=== PATIENT | female | born 1995 | race African-American/Black ===

== ENCOUNTER 2018-12-18 13:43 | Emergency (ER) | payer OTHER ==
[2018-12-18 13:49] VITALS: TEMP 98.4
--- NOTE | 2018-12-18 14:24 | ED ---
General Adult HPI - General Chief complaint: Chest Pain Stated complaint: Chest pain Time Seen by Provider: 12/18/18 14:00 Source: patient, RN notes reviewed Mode of arrival: ambulatory Limitations: no limitations - History of Present Illness Initial comments: This a 23-year-old female presents emergency Department chief complaint of chest discomfort. Patient states that she's been having on and off symptoms last couple days so she when she was at work. She has a sudden onset of pain is worse with movement or chest. Patient denies any current symptoms no shortness breath no headache or dizziness. Patient has occasional smoker. No family history of heart disease. Patient also states that she has some urinary symptoms and concern for . Patient states that she took a test a few weeks ago which was negative. Patient denies any diarrhea constipation - Related Data Previous Rx's Medication Instructions Recorded Ibuprofen [Motrin] 600 mg PO Q8HR PRN #30 tab 12/18/18 Allergies Allergy/AdvReac Type Severity Reaction Status Date / Time No Known Allergies Allergy Verified 07/05/15 20:16 Review of Systems ROS Statement: Those systems with pertinent positive or pertinent negative responses have been documented in the HPI. ROS Other: All systems not noted in ROS Statement are negative. Past Medical History Past Medical History: No Reported History History of Any Multi-Drug Resistant Organisms: None Reported Past Surgical History: Adenoidectomy, Tonsillectomy Past Psychological History: No Psychological Hx Reported Smoking Status: Former smoker Past Alcohol Use History: None Reported Past Drug Use History: None Reported General Exam Limitations: no limitations General appearance: alert, in no apparent distress Head exam: Present: atraumatic, normocephalic, normal inspection Respiratory exam: Present: normal lung sounds bilaterally, chest wall tenderne ss. Absent: respiratory distress, wheezes, rales, rhonchi, stridor Cardiovascular Exam: Present: regular rate, normal rhythm, normal heart sounds. Absent: systolic murmur, diastolic murmur, rubs, gallop, clicks GI/Abdominal exam: Present: soft, normal bowel sounds. Absent: distended, tenderness, guarding, rebound, rigid Back exam: Absent: CVA tenderness (R), CVA tenderness (L) Neurological exam: Present: alert Skin exam: Present: warm, dry, intact, normal color. Absent: rash Course Vital Signs 12/18/18 13:46 Temperature 98.4 F Pulse Rate 85 Respiratory 18 Rate Blood Pressure 121/87 O2 Sat by Pulse 98 Oximetry EKG Findings - EKG Comments: EKG Findings:: EKG performed at 14:17 normal sinus rhythm rate of 83 NC 194 QRS 78 QT status QTC 378/444 Medical Decision Making - Medical Decision Making 31-year-old female presented for intermittent chest discomfort. Patient is asymptomatic though she does have some current chest tenderness with palpation. Patient symptoms related to atypical chest pain, costochondritis. Patient was concerned about which is negative. Patient we discharged return parameters were discussed. - Lab Data Lab Results 12/18/18 12/18/18 Range/Units Unknown Unknown Urine Color Yellow Urine Appearance Cloudy H (Clear) Urine pH 7.0 (5.0-8.0) Ur Specific [place] 1.020 (1.001-1.035) Urine Protein Negative (Negative) Urine Glucose (UA) Negative (Negative) Urine Ketones Negative (Negative) Urine Blood Negative (Negative) Urine Nitrite Negative (Negative) Urine Bilirubin Negative (Negative) Urine Urobilinogen <2.0 (<2.0) mg/dL Ur Leukocyte Esterase Large H (Negative) Urine RBC 1 (0-5) /hpf Urine WBC 1 (0-5) /hpf Ur Squamous Epith Cells 7 H (0-4) /hpf Urine Mucus Rare H (None) /hpf Urine HCG, Qual Not Detected (Not Detectd) Disposition Clinical Impression: Atypical chest pain, Costochondritis Disposition: HOME SELF-CARE Condition: Stable Instructions (If sedation given, give patient instructions): Costochondritis (ED) Additional Instructions: Please return to the Emergency Department if symptoms worsen or any other concerns. Prescriptions: Ibuprofen [Motrin] 600 mg PO Q8HR PRN #30 tab PRN Reason: Pain Is patient prescribed a controlled substance at d/c from ED?: No Referrals: None,Stated [Primary Care Provider] - 1-2 days Time of Disposition: 14:59
[2018-12-18 14:33] LABS: Appearance,Urine Cloudy (Clear); Bilirubin,Urine Negative (Negative); Blood,Urine Negative (Negative); Color,Urine Yellow; Glucose,Urine (UA) Negative (Negative); Ketones,Urine Negative (Negative); Leukocyte Esterase,Urine Large (Negative); Mucus,Urine Rare /hpf; Nitrite,Urine Negative (Negative); Protein,Urine Negative (Negative); RBC,Urine 1 /hpf (0-5); Squamous Epithelial Cell,Urine 7 /hpf (0-4); Urobilinogen,Urine <2.0 mg/dL (<2.0); WBC,Urine 1 /hpf (0-5)
--- NOTE | 2018-12-18 14:45 | XR ---
EXAMINATION TYPE: XR chest 2V DATE OF EXAM: 12/18/2018 COMPARISON: NONE HISTORY: Chest pain TECHNIQUE: Frontal and lateral views of the chest are obtained. FINDINGS: Heart and mediastinum are normal. Lungs are clear. Diaphragm is normal. Bony thorax appear s normal. IMPRESSION: Normal chest
[2018-12-18 15:29] VITALS: BP 119/81; PULSE 80; RESP 16
== END 2018-12-18 15:29 | disposition home or self-care (01) ==
LOC: EC 13:43
DX: M94.0 Chondrocostal junction syndrome [Tietze] (principal); Z32.02 Encounter for pregnancy test, result negative; Z87.891 Personal history of nicotine dependence
CPT/HCPCS: 71046; 81001; 81025; 93005; 99285

== ENCOUNTER → 2021-07-01 | Outpatient (CLI) | payer OTHER ==
--- NOTE | 2021-07-02 09:38 | US ---
EXAMINATION TYPE: US OB anatomy transabd DATE OF EXAM: 07/02/2021 COMPARISON: NONE HISTORY: 26-year-old female Z36.3 MALFORMATION OF FETUS. Anatomy scan. . TECHNIQUE: Transabdominal (TA) FINDINGS: EXAM MEASUREMENTS: GESTATIONAL AGE / DATING Physician Established: (26 weeks/3 days) EDC: 10/04/2021 Dates by LMP: (26 weeks/2 days) EDC: 10/05/2021 Dates by First Scan: This is first scan. Dates by Current Scan for: (26 weeks/5 days) EDC: 10/02/2021 SURVEY IUP: Single PLACENTA: Anterior. Measures 6 cm AP, somewhat bulbous configuration. No focal lesion is identifie d. PREVIA: No previa KARL: 12.95 cm Normal CERVICAL LENGTH (transabdominal: norm > 3.0cm): 3.5 cm BIOMETRY PRESENTATION: Breech BPD: 6.51 cm 26 weeks / 2 days HC: 24.63 cm 26 weeks / 5 days AC: 23.19 cm 27 weeks / 4 days FL: 5.14 cm 27 weeks / 3 days ESTIMATED WEIGHT IN GRAMS: 1063 grams ESTIMATED WEIGHT IN LBS/OZ: 2 lbs. 5 oz. WEIGHT PERCENTAGE BASED ON ESTABLISHED DATE: 76.9 % HC/AC: 1.06 Normal FL/AC: 22.15 Normal HEART RATE: 141 bpm RHYTHM: Normal ANATOMY SEEN (within normal limits): Cisterna Magna (< 1.1 cm) 0.66 cm Nuchal Fold (< 0.6 cm) 0.52 cm Cerebellum (varies with age) 2.95 cm Midline Falx Four Chamber Heart Stomach Situs Diaphragm Bladder Three Vessel Cord Longitudinal Spine Transverse Spine Arms (bilateral) Legs (bilateral) ANATOMY NOT SEEN: Nose/lips Choroid plexus and Cavus Septi Pellucidi images limited Kidney images limited Cord Insert, not well-defined on the provided image Outflow tracts: LVOT/RVOT not well seen Lateral Vent (< 1 cm), 1.63 cm, suboptimal due to position S spine longitudinal imaging suboptimal MATERNAL WALL MEASUREMENT: 2.95 cm from skin to anterior uterine wall (if exam limited due to body h abitus). Female gender documented. IMPRESSION: 1. Single live intrauterine with established gestational age of 26 weeks 3 days. Current ul trasound biometry is concordant (26 weeks 5 days) placing the child at the 77th percentile for weight . 2. Number structures of the survey were not adequately visualized in part due to age and position. Consider rescan in one to 2 weeks. 3. Somewhat bulbous configuration to the placenta probably normal variation. No focal lesion is ident ified. This can also be reassessed on the follow-up exam. 4. Somewhat prominently distended bladder. Attention on follow-up. Also attention to the kidney s on the follow-up to exclude pelviectasis.
== END | disposition home or self-care (01) ==
LOC: RADUSWWP 16:22
PROVIDERS: ATTEND Obstetrics & Gynecology
DX: Z36.3 Encounter for antenatal screening for malformations (principal); Z3A.26 26 weeks gestation of pregnancy
CPT/HCPCS: 76811

== ENCOUNTER 2022-12-30 20:49 | Emergency (ER) | payer OTHER ==
--- NOTE | 2022-12-30 20:51 | ED ---
General Adult HPI - General Stated complaint: Gum Pain, Dizziness, 9 weeks preg Time Seen by Provider: 12/30/22 20:51 Source: RN notes reviewed - History of Present Illness Initial comments: 27-year-old -[place] female who reports she is approximately 9 weeks presents the emergency department with a chief complaint of dental pain. She reports she believes that she has a dental abscess on her right upper area of her mouth. It is tender. She reports that it is causing her to feel dizzy. She is complaining of pelvic cramping. She is not established with an CONTROL SYSTEM MANAGER at this time. She denies any vaginal bleeding, vaginal cramping, low back pain, dysuria, hematuria. Last menstrual periods date 10/28/22 Denies fevers. - Related Data Previous Rx's Medication Instructions Recorded Ibuprofen [Motrin] 600 mg PO Q8HR PRN #30 tab 12/18/18 Amoxic-Pot Clav 875-125Mg 1 tab PO Q12HR #20 tab 12/31/22 [Augmentin 875-125] Allergies Allergy/AdvReac Type Severity Reaction Status Date / Time No Known Allergies Allergy Verified 12/30/22 21:01 Review of Systems ROS Statement: Those systems with pertinent positive or pertinent negative responses have been documented in the HPI. ROS Other: All systems not noted in ROS Statement are negative. Past Medical History Past Medical History: No Reported History History of Any Multi-Drug Resistant Organisms: None Reported Past Surgical History: Adenoidectomy, Tonsillectomy Past Psychological History: No Psychological Hx Reported Past Alcohol Use History: None Reported Past Drug Use History: None Reported General Exam - General Exam Comments Initial Comments: Visual Physical Exam Vital signs reviewed General: Well-appearing, nontoxic, no acute distress. Head: Normocephalic, atraumatic Eyes: PERRLA, EOMI ENT: Airway patent Chest: Nonlabored breathing Skin: No visual rash, normal skin tone Neuro: Alert and oriented 3 Musculoskeletal: No gross abnormalities I performed the quick note portion of this exam, verbal signature Latoya Araya PA-C General: Alert, in no acute distress Head: atraumatic normocephalic. Eyes PERRL, EOMI intact, mucous membranes moist, small dental abscess to right upper gingiva Respiratory: Lungs clear to auscultation bilaterally Cardiovascular: Heart rate regular rate and rhythm Abdominal: Soft without guarding or rebound Extremities: Normal inspection with full range of motion and normal capillary refill Neuroogic: alert and oriented 3, CN II-XII intact, able to ambulate with steady gait Skin: warm dry and intact with normal color Course Vital Signs 12/30/22 12/31/22 20:59 01:30 Temperature 98.3 F 98.3 F Pulse Rate 88 76 Respiratory 18 17 Rate Blood Pressure 112/71 106/48 O2 Sat by Pulse 100 98 Oximetry - Reevaluation(s) Reevaluation #1: 12/31/22 00:39 For history and physical exam performed after patient walked to ER bed 5. Procedures - Incision & Drainage Consent Obtained: verbal consent Indication: Dental abscess Site: neck Scalpel Used: #11 Needle Aspiration Performed?: Yes Patient Tolerated Procedure: well, no complications Medical Decision Making - Medical Decision Making Was pt. sent in by a medical professional or institution (, PA, MANAGER MACHINE, urgent care, hospital, or fdc...) When possible be specific @ -[No] Did you speak to anyone other than the patient for history (EMS, parent, family, police, friend...)? What history was obtained from this source @ -[No] Did you review nursing and triage notes (agree or disagree)? Why? @ -[I reviewed and agree with nursing and triage notes] Were old charts reviewed (outside hosp., previous admission, EMS record, old EKG, old radiological studies, urgent care reports/EKG's, fdc records)? Report findings @ -[No old charts were reviewed] Differential Diagnosis (chest pain, altered mental status, abdominal pain women, abdominal pain men, vaginal bleeding, weakness, fever, dyspnea, syncope, headache, dizziness, GI bleed, back pain, seizure, CVA, palpatations, mental health, musculoskeletal)? @ -[not applicable] EKG interpreted by me (3pts min.). @ -[As above] X-rays interpreted by me (1pt min.). @ -[None done] CT interpreted by me (1pt min.). @ -[None done] U/S interpreted by me (1pt. min.). @ -Pelvic ultrasound reveals single IUP. heart tones 163 bpm What testing was considered but not performed or refused? (CT, X-rays, U/S, labs)? Why? @ -[None] What meds were considered but not given or refused? Why? @ -[None] Did you discuss the management of the patient with other professionals (professionals i.e. , PA, MANAGER MACHINE, lab, RT, psych nurse, community mental health social worker, manager of marketing, teacher, precinct commanding officer, manager of case)? Give summary @ -[No] Was smoking cessation discussed for >3mins.? @ -[No] Was critical care preformed (if so, how long)? @ -[No] Were there social determinants of health that impacted care today? How? (Homelessness, low income, unemployed, alcoholism, drug addiction, transportation, low edu. Level, literacy, decrease access to med. care, prison, rehab)? @ -[No] Was there de-escalation of care discussed even if they declined (Discuss DNR or withdrawal of care, Hospice)? DNR status @ -[No] What co-morbidities impacted this encounter? (DM, HTN, Smoking, COPD, CAD, Cancer, CVA, ARF, Chemo, Hep., AIDS, mental health diagnosis, sleep apnea, morb id obesity)? @ -[None] Was patient admitted / discharged? Hospital course, mention meds given and route, prescriptions, significant lab abnormalities, going to OR and other pertinent info. @ -Discharged. This is a pleasant 27-year-old -[place] female presents to the emergency department with dental abscess. Patient had a thorough history and physical exam performed. There is an abscess in the right upper gingiva. Attempted I&D procedure the dental abscess with minimal amount of discharge obtained. Patient tolerated well. No, palpitations. She was provided Augmentin. Return precautions were discussed. Patient discharged in stable condition. Case discussed with LUCI Head who agrees with plan or care. Undiagnosed new problem with uncertain prognosis? @ -[No] Drug Therapy requiring intensive monitoring for toxicity (Heparin, Nitro, Insulin, Cardizem)? @ -[No] Were any procedures done? @ -[No] Diagnosis/symptom? @ -Dental Abscess Acute, or Chronic, or Acute on Chronic? @ Acute Uncomplicated (without systemic symptoms) or Complicated (systemic symptoms)? @ -Uncomplicated Side effects of treatment? @ -[No] Exacerbation, Progression, or Severe Exacerbation? @ -[No] Poses a threat to life or bodily function? How? (Chest pain, [place], [place], pneumonia, PE, COPD, DKA, ARF, appy, cholecystitis, CVA, Diverticulitis, Homicidal, Suicidal, threat to staff... and all critical care pts) @ -Low likelihood - Lab Data Result diagrams: 12/30/22 22:12 12/30/22 22:12 Lab Results 12/30/22 12/30/22 12/30/22 Range/Units 22:12 22:12 22:12 WBC 6.3 (3.8-10.6) k/uL RBC 4.33 (3.80-5.40) m/uL Hgb 11.3 L (11.4-16.0) gm/dL Hct 34.6 (34.0-46.0) % MCV 79.9 L (80.0-100.0) fL MCH 26.1 (25.0-35.0) pg MCHC 32.7 (31.0-37.0) g/dL RDW 16.4 H (11.5-15.5) % Plt Count 217 (150-450) k/uL MPV 7.8 Neutrophils % 57 % Lymphocytes % 33 % Monocytes % 5 % Eosinophils % 3 % Basophils % 0 % Neutrophils # 3.6 (1.3-7.7) k/uL Lymphocytes # 2.0 (1.0-4.8) k/uL Monocytes # 0.3 (0-1.0) k/uL Eosinophils # 0.2 (0-0.7) k/uL Basophils # 0.0 (0-0.2) k/uL Anisocytosis Slight Microcytosis Slight Sodium 136 L (137-145) mmol/L Potassium 3.9 (3.5-5.1) mmol/L Chloride 104 (98-107) mmol/L Carbon Dioxide 23 (22-30) mmol/L Anion Gap 9 mmol/L BUN 11 (7-17) mg/dL Creatinine 0.78 (0.52-1.04) mg/dL Est GFR (CKD-EPI)AfAm >90 (>60 ml/min/1.73 sqM) Est GFR (CKD-EPI)NonAf >90 (>60 ml/min/1.73 sqM) Glucose 78 (74-99) mg/dL Calcium 9.5 (8.4-10.2) mg/dL Total Bilirubin 0.3 (0.2-1.3) mg/dL AST 20 (14-36) U/L ALT 15 (4-34) U/L Alkaline Phosphatase 54 (38-126) U/L Total Protein 7.5 (6.3-8.2) g/dL Albumin 4.3 (3.5-5.0) g/dL HCG, Quant 048688.0 mIU/mL Urine Color Urine Appearance (Clear) Urine pH (5.0-8.0) Ur Specific [place] (1.001-1.035) Urine Protein (Negative) Urine Glucose (UA) (Negative) Urine Ketones (Negative) Urine Blood (Negative) Urine Nitrite (Negative) Urine Bilirubin (Negative) Urine Urobilinogen (<2.0) mg/dL Ur Leukocyte Esterase (Negative) Urine RBC (0-5) /hpf Urine WBC (0-5) /hpf Ur Squamous Epith Cells (0-4) /hpf Urine Bacteria (None) /hpf Hyaline Casts (0-2) /lpf Urine Mucus (None) /hpf Blood Type A Positive Blood Type Recheck No Previous Record Bld Type Recheck Status CABO Indicated 12/30/22 Range/Units 22:40 WBC (3.8-10.6) k/uL RBC (3.80-5.40) m/uL Hgb (11.4-16.0) gm/dL Hct (34.0-46.0) % MCV (80.0-100.0) fL MCH (25.0-35.0) pg MCHC (31.0-37.0) g/dL RDW (11.5-15.5) % Plt Count (150-450) k/uL MPV Neutrophils % % Lymphocytes % % Monocytes % % Eosinophils % % Basophils % % Neutrophils # (1.3-7.7) k/uL Lymphocytes # (1.0-4.8) k/uL Monocytes # (0-1.0) k/uL Eosinophils # (0-0.7) k/uL Basophils # (0-0.2) k/uL Anisocytosis Microcytosis Sodium (137-145) mmol/L Potassium (3.5-5.1) mmol/L Chloride (98-107) mmol/L Carbon Dioxide (22-30) mmol/L Anion Gap mmol/L BUN (7-17) mg/dL Creatinine (0.52-1.04) mg/dL Est GFR (CKD-EPI)AfAm (>60 ml/min/1.73 sqM) Est GFR (CKD-EPI)NonAf (>60 ml/min/1.73 sqM) Glucose (74-99) mg/dL Calcium (8.4-10.2) mg/dL Total Bilirubin (0.2-1.3) mg/dL AST (14-36) U/L ALT (4-34) U/L Alkaline Phosphatase (38-126) U/L Total Protein (6.3-8.2) g/dL Albumin (3.5-5.0) g/dL HCG, Quant mIU/mL Urine Color Yellow Urine Appearance Cloudy H (Clear) Urine pH 6.0 (5.0-8.0) Ur Specific [place] 1.031 (1.001-1.035) Urine Protein Trace H (Negative) Urine Glucose (UA) Negative (Negative) Urine Ketones Negative (Negative) Urine Blood Negative (Negative) Urine Nitrite Negative (Negative) Urine Bilirubin Negative (Negative) Urine Urobilinogen <2.0 (<2.0) mg/dL Ur Leukocyte Esterase Small H (Negative) Urine RBC 2 (0-5) /hpf Urine WBC 3 (0-5) /hpf Ur Squamous Epith Cells 12 H (0-4) /hpf Urine Bacteria Moderate H (None) /hpf Hyaline Casts 6 H (0-2) /lpf Urine Mucus Few H (None) /hpf Blood Type Blood Type Recheck Bld Type Recheck Status Disposition Clinical Impression: Dental abscess Disposition: HOME SELF-CARE Condition: Stable Instructions (If sedation given, give patient instructions): Dental Abscess (ED) Additional Instructions: Please take antibiotics as prescribed Prescriptions: Amoxic-Pot Clav 875-125Mg [Augmentin 875-125] 1 tab PO Q12HR #20 tab Is patient prescribed a controlled substance at d/c from ED?: No Referrals: None,Stated [Primary Care Provider] - 1-2 days Carrol Coyle DO [Doctor of Osteopathic Medicine] - 1-2 days Paola Penn DO [Doctor of Osteopathic Medicine] - 1-2 days Kassandra Norton MD [STAFF PHYSICIAN] - 1-2 days Time of Disposition: 00:40
[2022-12-30 21:01] VITALS: TEMP 98.3
[2022-12-30 22:23] LABS: Anisocytosis Slight; Basophils % (A) 0 %; Eosinophils # (A) 0.2 k/uL (0-0.7); Eosinophils % (A) 3 %; HCT 34.6 % (34.0-46.0); HGB 11.3 gm/dL (11.4-16.0); Lymphocytes % (A) 33 %; MCH 26.1 pg (25.0-35.0); MCHC 32.7 g/dL (31.0-37.0); MCV 79.9 fL (80.0-100.0); Mean Platelet Volume 7.8; Microcytosis Slight; Monocytes # (A) 0.3 k/uL (0-1.0); Monocytes % (A) 5 %; Neutrophils # (A) 3.6 k/uL (1.3-7.7); Neutrophils % (A) 57 %; Platelet Count 217 k/uL (150-450); RBC 4.33 m/uL (3.80-5.40); RDW 16.4 % (11.5-15.5); WBC 6.3 k/uL (3.8-10.6)
[2022-12-30 22:31] LABS: ALT 15 U/L (4-34); AST 20 U/L (14-36); African American GFR (CKD) >90 (>60 ml/min/1.73 sqM); Albumin 4.3 g/dL (3.5-5.0); Alkaline Phosphatase 54 U/L (38-126); Anion Gap 9 mmol/L; Blood Urea Nitrogen 11 mg/dL (7-17); Calcium 9.5 mg/dL (8.4-10.2); Carbon Dioxide 23 mmol/L (22-30); Chloride 104 mmol/L (98-107); Glucose 78 mg/dL (74-99); Non-African American GFR(CKD) >90 (>60 ml/min/1.73 sqM); Potassium 3.9 mmol/L (3.5-5.1); Sodium 136 mmol/L (137-145); Total Bilirubin 0.3 mg/dL (0.2-1.3); Total Protein 7.5 g/dL (6.3-8.2)
[2022-12-30 23:04] LABS: Appearance,Urine Cloudy (Clear); Bacteria,Urine Moderate /hpf; Bilirubin,Urine Negative (Negative); Blood,Urine Negative (Negative); Color,Urine Yellow; Glucose,Urine (UA) Negative (Negative); Hyaline Casts,Urine 6 /lpf (0-2); Ketones,Urine Negative (Negative); Leukocyte Esterase,Urine Small (Negative); Mucus,Urine Few /hpf; Nitrite,Urine Negative (Negative); Protein,Urine Trace (Negative); RBC,Urine 2 /hpf (0-5); Specific Gravity,Urine 1.031 (1.001-1.035); Squamous Epithelial Cell,Urine 12 /hpf (0-4); Urobilinogen,Urine <2.0 mg/dL (<2.0); WBC,Urine 3 /hpf (0-5)
--- NOTE | 2022-12-31 00:43 | US ---
EXAM: US First Trimester , Transabdominal CLINICAL HISTORY: ITS.REASON US Reason: pelvic cramping in TECHNIQUE: Real-time transabdominal obstetrical ultrasound of the maternal pelvis and a first trimester with image documentation. COMPARISON: US 1st Trimester Transabdominal dated 07/01/21 FINDINGS: Gestation: Single live intrauterine . 9 weeks 0 days by CRL. 163 bpm. BRENDA: BRENDA 08/04/2023. Placenta/amniotic fluid: Small subchorionic bleed 1.9 x 1.7 x 1.3 cm. Uterus/cervix: Unremarkable. No myometrial mass. Ovaries: Ovaries appear normal. Right ovary with 3.3 cm corpus luteum. No adnexal mass. Free fluid: No free fluid. IMPRESSION: Single live intrauterine . 9 weeks 0 days by CRL. 163 bpm.
[2022-12-31] MEDS ORDERED: AMOXIC-POT CLAV 875-125MG 1 EACH TAB PO STA (01:05)
[2022-12-31 01:31] VITALS: BP 106/48; PULSE 76; RESP 17
== END 2022-12-31 01:31 | disposition home or self-care (01) ==
LOC: EC 20:49
DX: O99.711 Diseases of the skin and subcutaneous tissue complicating pregnancy, first trimester (principal); K04.7 Periapical abscess without sinus; Z3A.09 9 weeks gestation of pregnancy
CPT/HCPCS: 36415; 41800; 76801; 80053; 81001; 84702; 85025; 86900; 86901; 99284

== ENCOUNTER 2023-04-06 11:34 | Outpatient (CLI) | payer OTHER ==
[2023-04-06] MEDS: LACTATED RINGERS 1,000 ML IV SCH ×2 (12:15→12:53)
[2023-04-06] MEDS: ONDANSETRON 4 MG/2 ML VIAL IVP STA (12:20)
[2023-04-06 14:06] LABS: Appearance,Urine Clear (Clear); Color,Urine Orange; Glucose,Urine (UA) Negative (Negative); Ketones,Urine 2+ (Negative); PH, Urine 7.5 (5.0-8.0); Protein,Urine 1+ (Negative); Specific Gravity,Urine 1.015 (1.001-1.035)
[2023-04-06 14:07] LABS: Bilirubin,Urine 1+ (Negative); Blood,Urine Negative (Negative); Leukocyte Esterase,Urine Small (Negative); Nitrite,Urine Negative (Negative); Urobilinogen,Urine 0.2 mg/dL (<2.0)
[2023-04-06 14:09] LABS: Bacteria,Urine Occasional /hpf; Hyaline Casts,Urine 1 /lpf (0-2); Mucus,Urine Many /hpf; RBC,Urine 1 /hpf (0-5); Squamous Epithelial Cell,Urine 17 /hpf (0-4); WBC,Urine 2 /hpf (0-5)
[2023-04-06 14:51] VITALS: BP 117/60; PULSE 95; RESP 17; TEMP 97.9
[2023-04-06 14:54] LABS: Basophils % (A) 0 %; Eosinophils % (A) 0 %; HCT 30.4 % (34.0-46.0); HGB 10.2 gm/dL (11.4-16.0); Hypochromasia Slight; Lymphocytes # (A) 0.6 k/uL (1.0-4.8); Lymphocytes % (A) 9 %; MCH 27.7 pg (25.0-35.0); MCHC 33.6 g/dL (31.0-37.0); MCV 82.3 fL (80.0-100.0); Mean Platelet Volume 8.3; Monocytes # (A) 0.2 k/uL (0-1.0); Monocytes % (A) 4 %; Neutrophils # (A) 5.1 k/uL (1.3-7.7); Neutrophils % (A) 86 %; Platelet Count 207 k/uL (150-450); RBC 3.69 m/uL (3.80-5.40); RDW 14.8 % (11.5-15.5)
[2023-04-06 17:16] LABS: Amphetamine Screen,Urine Not Detected (NotDetected); Barbiturate Screen,Urine Not Detected (NotDetected); Benzodiazepines Screen,Urine Not Detected (NotDetected); Cocaine Screen,Urine Not Detected (NotDetected); Methadone Screen, Urine Not Detected (NotDetected); Opiate Screen,Urine Not Detected (NotDetected); Oxycodone Screen, Urine Not Detected (NotDetected); Phencyclidine Screen,Urine Not Detected (NotDetected); Tricyclic Antidepressant,Urine Not Detected (NotDetected); Urn Cannabinoid Scrn Not Detected (NotDetected)
[2023-04-06 21:09] LABS: Hepatitis B Surface Antigen Nonreactive
[2023-04-07 14:41] LABS: C. trachomatis,PCR Negative (Negative)
[2023-04-07 15:07] LABS: N. gonorrhoeae,PCR Negative (Negative)
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
== END 2023-04-06 14:30 | disposition home or self-care (01) ==
LOC: FBPOP 11:34
PROVIDERS: ATTEND Obstetrics & Gynecology
DX: Z53.9 Procedure and treatment not carried out, unspecified reason (principal)
CPT/HCPCS: 96361; 96374; 36415; 86900; 86901; 86762; 82947; 85025; 86850; 87340; 81001; 87491; 87591; 86780; 80306; G0463; J2405; 99214